=== PATIENT | female | born 1960 | race African-American/Black ===

== ENCOUNTER 2018-07-21 06:23 | Emergency (ER) | payer MEDICAID ==
[~2018-07-21] VITALS: Ht 167.6 cm; Wt 63.6 kg
[2018-07-21 06:27] VITALS: BP 157/103
== END 2018-07-21 15:50 | disposition left against medical advice (07) ==
LOC: ER 06:23
DX: Z53.21 Procedure and treatment not carried out due to patient leaving prior to being seen by health care provider (principal)

== ENCOUNTER 2024-05-28 21:34 | Emergency (ER) | payer MEDICAID, OTHER ==
[~2024-05-28] VITALS: Ht 167.6 cm; Wt 67.0 kg
[2024-05-28 21:39] VITALS: O2SAT 99
[2024-05-28 22:49] LABS: DIFFERENTIAL COMMENT 0; EOSINOPHILS % 1.1 % (0.0-5.0); HEMATOCRIT. 39.5 % (36.0-48.0); HEMOGLOBIN. 13.5 g/dL (12.0-16.0); LYMPHOCYTES % 30.2 % (20.0-50.0); MEAN CORPUSCULAR HEMOGLOBIN 37.4 pg (28.0-32.0); MEAN CORPUSCULAR VOLUME 109.8 fL (81.0-99.0); MEAN PLATELET VOLUME 8.1 fl (7.4-10.4); MONOCYTES % 5.4 % (2.0-8.0); NEUTROPHILS % 62.3 % (40.0-76.0); PLATELET 225 x1000/uL (130-400); RED CELL DISTRIBUTION WIDTH 13.4 % (11.6-14.6); WHITE BLOOD COUNT 6.5 x1000/uL (4.5-11.0)
[2024-05-28 22:59] LABS: CHLORIDE 100 mEq/L (98-107); POTASSIUM 3.6 mEq/L (3.5-5.1); SODIUM 135 mEq/L (136-145)
[2024-05-28 23:00] LABS: CARBON DIOXIDE 25 mEq/L (21-32)
[2024-05-28 23:01] LABS: CALCIUM 9.1 mg/dL (8.7-10.4)
[2024-05-28 23:05] LABS: CREATININE 0.5 mg/dL (0.6-1.0); GLUCOSE 92 mg/dL (70-105); UREA NITROGEN BLOOD 5 mg/dL (9-23)
[2024-05-28 23:06] LABS: AMMONIA < 17 uMol/L (<32)
[2024-05-28 23:07] LABS: ACETAMINOPHEN < 2 ug/mL (10-30)
[2024-05-28 23:10] LABS: TROPONIN I HIGH SENSITIVITY < 4 ng/L (3.0-34)
[2024-05-28 23:15] LABS: ETHANOL BLOOD 378 mg/dL (<10)
[2024-05-29] MEDS: SODIUM CHLORIDE 0.9% 500 ML IV ONE (00:38)
[2024-05-29 02:13] LABS: CLARITY URINE CLEAR (CLEAR); COLOR URINE YELLOW (YELLOW); GLUCOSE URINE NEGATIVE (NEGATIVE); KETONES URINE NEGATIVE (NEGATIVE); LEUKOCYTE ESTERASE URINE NEGATIVE (NEGATIVE); NITRITE URINE NEGATIVE (NEGATIVE); OCCULT BLOOD URINE NEGATIVE (NEGATIVE); PH URINE 6.5 (4.5-8.0); PROTEIN URINE NEGATIVE (NEGATIVE); SPECIFIC GRAVITY URINE 1.004 (1.005-1.030)
[2024-05-29 03:05] VITALS: BP 135/87; PULSE 97; RESP 18; TEMP 36.61404; O2SAT 97
[2024-05-29 03:05] LABS: *AMPHETAMINES SCREEN URINE NEGATIVE (NEGATIVE); *BARBITURATES SCREEN URINE NEGATIVE (NEGATIVE); *BENZODIAZEPINES SCREEN URINE NEGATIVE (NEGATIVE); *COCAINE SCREEN URINE NEGATIVE (NEGATIVE); METHADONE URINE SCREEN NEGATIVE (NEGATIVE); OPIATES URINE SCREEN NEGATIVE (NEGATIVE); PHENCYCLIDINE URINE SCREEN NEGATIVE (NEGATIVE)
[2024-05-29 03:06] LABS: CANNABINOID URINE SCREEN PRESUMPTIVE POSITIVE (NEGATIVE); ECSTASY MDMA SCREEN URINE NEGATIVE (NEGATIVE)
== END 2024-05-29 03:12 | disposition short-term general hospital (02) ==
LOC: ER 21:34 → EDBEDREQ 05-29 01:00 → EDBEDREQTM 05-29 01:00 → ER 05-29 03:12
DX: G31.2 Degeneration of nervous system due to alcohol (principal); R53.1 Weakness; F10.129 Alcohol abuse with intoxication, unspecified; F12.90 Cannabis use, unspecified, uncomplicated; Y90.8 Blood alcohol level of 240 mg/100 ml or more
CPT/HCPCS: 36415; 73610; 80048; 80305; 80307; 80320; 80329; 81003; 82140; 84484; 85025; 93005; 93970; 96360; 99285; G0480